=== PATIENT | male | born 1995 | race Two or more races ===

== ENCOUNTER 2021-09-03 17:17 | Emergency (ER) | payer OTHER ==
--- NOTE | 2021-09-03 18:03 | XRAY Report ---
PROCEDURE: Chest 2 View X-Ray INDICATIONS: right chest pain TECHNIQUE: 2 view(s) of the chest. COMPARISON: None. FINDINGS: Surgical changes and devices: None. Lungs and pleura: No pleural effusions or pneumothorax. Lungs are clear. Mediastinum: Mediastinal contours are normal. Heart size is normal. Bones and chest wall: No suspicious bony abnormalities. Soft tissues appear unremarkable. IMPRESSION: No acute cardiopulmonary disease process. Reviewed by: Sakshi Herbert MD, PhD on 09/03/2021 6:01 PM [facility] Approved by: Sakshi Herbert MD, PhD on 09/03/2021 6:01 PM [facility] Station ID: [id number]
[2021-09-03] MEDS ORDERED: KETOROLAC 60 MG/2 ML VIAL IM STA (18:54)
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
[2021-09-03 19:11] VITALS: BP 125/63
== END 2021-09-03 19:11 | disposition home or self-care (01) ==
LOC: ED 17:17
DX: M94.0 Chondrocostal junction syndrome [Tietze] (principal)
CPT/HCPCS: 93005; 96372; 99283

== ENCOUNTER 2021-09-27 04:39 | Outpatient (CLI) | payer OTHER | END 2021-09-27 04:40 | disposition critical access hospital (66) | LOC: EMS 04:39 | DX: Z04.1 Encounter for examination and observation following transport accident (principal); M25.532 Pain in left wrist; M79.642 Pain in left hand | CPT/HCPCS: A0425; A0429 ==

== ENCOUNTER 2021-09-27 04:59 | Emergency (ER) | payer OTHER ==
[2021-09-27] MEDS ORDERED: IBUPROFEN 600 MG TABLET PO STA (05:26)
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
[2021-09-27] MEDS ORDERED: TETANUS/DIPHTHERIA/PERTUSSIS 0.5 ML SYRINGE IM ONE (05:27)
[2021-09-27 07:22] VITALS: BP 146/89
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
== END 2021-09-27 07:21 | disposition home or self-care (01) ==
LOC: EDUNIT# → ED 04:59
DX: S62.393A Other fracture of third metacarpal bone, left hand, initial encounter for closed fracture (principal); S62.395A Other fracture of fourth metacarpal bone, left hand, initial encounter for closed fracture; V89.2XXA Person injured in unspecified motor-vehicle accident, traffic, initial encounter; Y93.89 Activity, other specified; Y92.410 Unspecified street and highway as the place of occurrence of the external cause
CPT/HCPCS: 73110; 73130; 90471; 90715; 99282; 99283; A9270